=== PATIENT | female | born 1950 | race Caucasian/White ===

== ENCOUNTER 2023-02-22 11:33 | Inpatient (IN) | payer MEDICARE, BC, SELFPAY ==
[2023-02-22] VITALS (29 sets, daily range): BP systolic 17–204; BP diastolic 10–134; PULSE 80–83; RESP 2–26; TEMP 35.7–36.6; O2SAT 93–99; BMI 29.8
--- NOTE | 2023-02-22 12:16 | CRLHL7_ITS ---
For Patients: As a result of the Century Cures Act, medical imaging exams and procedure reports are released immediately into your electronic medical record. You may view this report before your referring provider. If you have questions, please contact your health care provider. INDICATION: Shortness of breath. Weakness. TECHNIQUE: Portable chest. FINDINGS: Sternotomy. Multi chamber moderate cardiomegaly. Right-sided pacemaker/ICD. No pneumothorax. Obscuration of left hemidiaphragm and part of the left heart border likely due to a left lower lobe and lingular infiltrate and/or atelectasis. Comparison/follow-up suggested. Degenerative change left AC joint. Presumed resection of the distal right clavicle. IMPRESSION: Cardiac enlargement without overt failure. Dense infiltrate and/or atelectasis left lower lobe and lingular left upper lobe. Dictated by Bobo Hong MD @ 02/22/2023 1:00:06 PM (Electronically Signed)
--- NOTE | 2023-02-22 12:18 | ED_ITS ---
HPI - General Adult General Chief complaint: Weakness Stated complaint: Weakness, swelling Time Seen by Provider: 02/22/23 11:35 History of Present Illness HPI narrative: This 72-year-old female is a recipient of a heart transplant almost 5 years ago. She comes in reporting weight gain with increased weakness and fear that she will fall when she is able to get up. She lives at home and states that she has a hard time getting up to ambulate from sitting position. She does not report any chest pain. She is taking torsemide but states that she is gaining weight recently with increased edema. She does not report any orthopnea. Related Data Allergies Allergy/AdvReac Type Severity Reaction Status Date / Time pioglitazone [From Actos] Allergy Verified 02/22/23 11:47 Review of Systems Status of ROS: Reports: 10 or more systems reviewed and unremarkable except as noted in History and below Narrative: Constitutional: No fevers, no weight gain or loss. Eyes: No discharge. No vision changes. HENT: No congestion, no sore throat, no ear pain. Cardiovascular: No chest pain, no palpitations. Respiratory: Shortness of breath with exertion. Gastrointestinal: No abdominal pain, no vomiting, no diarrhea. Genitourinary: No dysuria, no hematuria. Musculoskeletal: Normal range of motion. Increased pedal edema. Skin: No rashes, no pruritis. Neurological: No dizziness, weakness, sensory change, speech change. Endo/Heme/Allergies: No bruising or bleeding. No polydipsia. Pysch: no suicidality, no anxiety, no insomnia. All other systems reviewed and are negative. PFSH PFS Social History Smoking Status: Never smoker Do you use any of these nicotine containing products: None Second hand tobacco smoke exposure: Yes How often do you have a drink containing alcohol: never AUDIT-C Alcohol total score: 0 Non-prescribed substance use: denies use service: No Exam Narrative: Exam Narrative: Constitutional: Well-developed, well-nourished, no acute distress. HEENT: Normocephalic, atraumatic. Neck: Normal range of motion. Nontender. Supple. Heart: Regular. No murmurs. Normal rate. Intact distal pulses. Lungs: Clear to auscultation. No chest discomfort. No wheezes, rhonchi, or rales. Abdomen: Normal bowel sounds. Nontender. No rebound tenderness. Genitalia: Deferred. Back: No midline tenderness. Normal range of motion. Extremities: Normal range of motion. No injury. Large bilateral pedal edema. Skin: Intact. No rash. Warm. No erythema or pallor. Neurologic: No altered sensation. No weakness. Alert and oriented. Psychiatric: No suicidality. No anxiety or depression. No insomnia. Nursing notes and vitals signs are reviewed. Const: Vital Signs, click to edit/add: Vital Signs - 24 hr 02/22/23 11:47 02/22/23 11:58 02/22/23 12:00 Temperature 96.9 F L Pulse Rate 80 80 Pulse Rate [Pulse Oximeter] 80 Respiratory Rate 26 H Blood Pressure Blood Pressure [Le ft Forearm] 204/111 H Pulse Oximetry 95 94 94 Oxygen Delivery Me thod Room Air 02/22/23 12:02 02/22/23 12:03 02/22/23 12:15 Temperature Pulse Rate 80 80 80 Pulse Rate [Pulse Oximeter] Respiratory Rate Blood Pressure 199/113 H Blood Pressure [Le ft Forearm] Pulse Oximetry 94 93 94 Oxygen Delivery Me thod 02/22/23 12:30 02/22/23 12:33 02/22/23 12:45 Temperature Pulse Rate 80 80 80 Pulse Rate [Pulse Oximeter] Respiratory Rate Blood Pressure 175/84 H Blood Pressure [Le ft Forearm] Pulse Oximetry 96 96 96 Oxygen Delivery Me thod 02/22/23 12:49 Temperature Pulse Rate Pulse Rate [Pulse Oximeter] Respiratory Rate Blood Pressure Blood Pressure [Le ft Forearm] Pulse Oximetry 97 Oxygen Delivery Me thod Course Vital Signs Vital signs: Initial Vital Signs Temperature 96.9 F L 02/22/23 11:47 Temperature Source Temporal Artery Scan 02/22/23 11:47 Pulse Rate 80 02/22/23 11:47 Pulse Rhythm Regular 02/22/23 11:47 Respiratory Rate 26 H 02/22/23 11:47 Blood Pressure 204/111 H 02/22/23 11:47 Blood Pressure Mean 142 H 02/22/23 11:47 Blood Pressure Position Supine 02/22/23 11:47 Pulse Oximetry 95 02/22/23 11:47 Oxygen Delivery Method Room Air 02/22/23 11:47 Vital Signs Temperature 96.9 F L 02/22/23 11:47 Pulse Rate 80 02/22/23 11:47 Respiratory Rate 26 H 02/22/23 11:47 Blood Pressure 204/111 H 02/22/23 11:47 Pulse Oximetry 95 02/22/23 11:47 Oxygen Delivery Method Room Air 02/22/23 11:47 Temperature 96.9 F L 02/22/23 11:47 Pulse Rate 80 02/22/23 12:45 Respiratory Rate 26 H 02/22/23 11:47 Blood Pressure 175/84 H 02/22/23 12:33 Pulse Oximetry 97 02/22/23 12:49 Oxygen Delivery Method Room Air 02/22/23 11:47 Medical Decision Making MDM Narrative Medical decision making narrative: This 72-year-old female comes in reporting increased weakness over the past week or 2. She states that she has been retaining fluid in gaining weight. She does have a history of heart transplant about 5 years ago and is currently taking torsemide. She states that she is urinating but does have large bilateral pedal edema. An IV was established and the patient did receive an IV dose of Lasix 40 mg. EKG shows normal sinus rhythm without any ST or T-wave changes. Chest x- ray shows an enlarged heart with some decreased lung volume on the left side compared to normal. Lab results are reassuring. Her B type natriuretic peptide is elevated at around 5600. There is no comparison value for this available here. I did speak with the hospitalist precision mechanical instrument maker, Dr. Montoya, who agrees to her admission for further diuresis. Lab Data Labs: Lab Results 02/22/23 Range/Units 12:35 WBC 3.78 L (4.50-11.00) K/uL RBC 4.18 (4.00-5.20) m/uL Hgb 11.7 L (12.0-16.0) gm/dL Hct 35.5 (33.0-51.0) % MCV 85 (80-100) fL MCH 28 (26-34) pg MCHC 33 (32-36) gm/dL RDW Coeff of Wanda 15.1 (11.5-15.5) % Plt Count 158 (140-440) K/uL Neut % (Auto) 68.0 (42.0-72.0) % Lymph % (Auto) 19.6 L (20-44) % [place] % (Auto) 7.9 (0.0-11.0) % Eos % (Auto) 3.7 (0.0-7.0) % Baso % (Auto) 0.5 (0.0-3.0) % Neut # (Auto) 2.60 (1.7-7.0) K/uL Lymph # (Auto) 0.70 L (0.90-2.90) K/uL [place] # (Auto) 0.30 (0.00-0.90) K/UL Eos # (Auto) 0.10 (0.00-0.50) K/uL Baso # (Auto) 0.00 (0.00-0.30) K/uL Sodium 138 (135-149) mmol/L Potassium 3.6 (3.6-5.1) mmol/L Chloride 109 (96-114) mmol/L Carbon Dioxide 27 (20-32) mmol/L BUN 29 (7-30) mg/dL Creatinine 2.3 H (0.5-1.5) mg/dL Estimated Creat Clear 21.82 Estimated GFR 22 ml/min Glucose 127 H (60-115) mg/dL Calcium 7.9 L (8.4-10.6) mg/dL NT-Pro-B Natriuret Pep 5620 pg/mL POC Troponin I 0.02 (0.01-0.04) ng/ml Imaging Data Chest x-ray: Radiologist's impression: FINDINGS: Sternotomy. Multi chamber moderate cardiomegaly. Right-sided pacemaker/ICD. No pneumothorax. Obscuration of left hemidiaphragm and part of the left heart border likely due to a left lower lobe and lingular infiltrate and/or atelectasis. Comparison/follow-up suggested. Degenerative change left AC joint. Presumed resection of the distal right clavicle. IMPRESSION: Cardiac enlargement without overt failure. Dense infiltrate and/or atelectasis left lower lobe and lingular left upper lobe. Discharge Plan Discharge Clinical Impression: Congestive heart failure Patient Disposition: Admitted As Inpatient Condition: Unchanged Follow Up/Referrals: Huseyin Vera MD [Primary Care Provider] -
--- OUTSIDE RECORDS SUMMARY | 2023-02-22 12:38 | XMS_ITS | Continuity of Care Document ---
Author Name Unknown Organization [facility] Address [address] [address] [place] [address] Phone Care Team Providers Care Supervisor Advice Name Role Phone Terra Mustafa Unavailable Unavailable Procedures Procedure Date Subsqt Hosp-da E&m Minr Compl 2 Init Hosp-da E&m Mod Severity 2 Init Hosp-da E&m Low Severity 7 Colorectal Ca Scrn Not Hi Risk 17 Moderate sedation, initial 15 minutes Advance Directives Directive Yes / No Effective Date File Name No Information Encounters Encounter Description Practice Location Reason(s) For Visit Diagnoses Date Provider Providers Copied on Encounter Subsqt Hosp-da E&m Minr Compl [facility], [address] [address], [place], [place], [id number], [place] tel:[phone] [facility] No Information [address] [facility] [address], [place], [id number], [place]. tel:[phone] Referring Provider: Gaudencio Cooper MD, [address], [address]. tel:[phone] Init Hosp-da E&m Mod Severity [facility], [address] [address], [place], [place], [id number], [place] tel:[phone] [facility] No Information [address] [facility] [address], [place], [id number], [place]. tel:[phone] Referring Provider: Gaudencio Cooper MD, [address], [place], [address]. tel:[phone] Init Hosp-da E&m Low Severity [facility], [address] [address], [place], [place], [id number], [place] tel:[phone] [facility] No Information Mar- 7 Kal REYES Osman. [address] [facility] [facility] [address], [place], [place], [id number], [place]. tel:[phone] Ref[place], [address] [place], [address]. tel:[phone] Family History Family Member Type Diagnosis Age At Onset No Information Payers Payer name Insurance type Covered libertarian ID shiraz vang(s) Medicare NGS MB [id number] [facility] Medicare Supplement BL [id number] Social History Type Description Quantity Date Captured Comments Sex Female Smoking Status No Information Chief Complaint And Reason For Visit No Information Reason For Referral Reason For Referral No Information Plan Of Treatment Date Type Action Status No Information History Of Present Illness Encounter Date Complaint History Of Prese nt Illness No Information Functional Status Date Functional Assessmen t No Information Instructions Date Instruction Additional Infor mation No Information Assessments Type Assessment Date No Information Patient Care Teams Name Effective Dates (start - stop) Status Members No Information
[2023-02-22] MEDS: FUROSEMIDE 10 MG/ML inj 40 MG IVP (12:39)
[2023-02-22 12:48] LABS: Basophils Percent Auto 0.5 % (0.0-3.0); Eosinophils Percent Auto 3.7 % (0.0-7.0); Hematocrit 35.5 % (33.0-51.0); Hemoglobin* 11.7 gm/dL (12.0-16.0); Immature Granulocytes Pct Auto 0.3 %; Lymphocytes Percent Auto 19.6 % (20-44); Mean Corpuscular HGB Conc 33 gm/dL (32-36); Mean Corpuscular Hemoglobin 28 pg (26-34); Mean Corpuscular Volume 85 fL (80-100); Monocytes Percent Auto 7.9 % (0.0-11.0); Platelet Count* 158 K/uL (140-440); RDW Coefficient of Variation % 15.1 % (11.5-15.5); Red Blood Count 4.18 m/uL (4.00-5.20); White Blood Count* 3.78 K/uL (4.50-11.00)
[2023-02-22 12:51] LABS: Slide Review Reflex No
[2023-02-22 12:52] LABS: Troponin, Point-of-Care* 0.02 ng/ml (0.01-0.04)
[2023-02-22 13:05] LABS: Chloride* 109 mmol/L (96-114); Potassium* 3.6 mmol/L (3.6-5.1); Sodium* 138 mmol/L (135-149)
[2023-02-22 13:08] LABS: Blood Urea Nitrogen* 29 mg/dL (7-30); Carbon Dioxide* 27 mmol/L (20-32); Creatinine* 2.3 mg/dL (0.5-1.5); Est. Creatinine Clearance* 21.82; Estimated Glomerular Filt Rate 22 ml/min; Glucose* 127 mg/dL (60-115)
[2023-02-22 13:09] LABS: Calcium* 7.9 mg/dL (8.4-10.6)
[2023-02-22 13:18] LABS: NT Pro B Type NatriureticPept* 5620 pg/mL
[2023-02-22] MEDS: POTASSIUM BICARB 25 MEQ EFFERVESCENT TAB PO (14:12)
--- NOTE | 2023-02-22 15:25 | PM.IMHP1 ---
Hospitalist- H&P: HPI History of Present Illness Date Seen: 02/22/23 Chief complaint: Weakness, swelling Narrative: Jael Khan is a 72 year old female status post heart transplant for nonischemic cardiomyopathy, pacemaker placement for complete heart block, tricuspid valve replacement, hypertension, diabetes mellitus presents with a 2 week history of progressive weakness, fatigue, dyspnea, cough and lower extremity edema. She has also noted weight gain. She has not noted any orthopnea. She estimates she has had about 10 lb weight gain in the last couple weeks going from her normal of 181 lb to 191 lb. She reports that she avoid sodium in her diet and has been compliant with her medications. She has not had any chest pain, cough, fever or syncope. Her blood pressure is quite high here. She is unaware whether she has had good blood pressure control at home. She is also unaware of her blood sugar control. Her record indicates she has type 1 diabetes but she is only on a low dose of long-acting insulin, Levemir for treatment. I suspect that she has type 2 diabetes requiring insulin. Review of Systems Narrative: She reports other than the symptoms above she has generally been doing well recently. She does note that she has had no abdominal symptoms or gastrointestinal symptoms except for a little bit of a loss of appetite in the last couple days. No diarrhea. Bowels are normal in appearance without blood or melena. She has been urinating. She lives with her near [facility]. She requests all of her immediate family be healthcare power of commonwealth attorney. Code status is full code for witnessed arrest only. She does not smoke. She does not drink alcohol. [facility] Medical History Obesity ?E66.9 - Obesity, unspecified (ICD-10) Diabetic retinopathy ?E11.319 - Type 2 diabetes mellitus with unspecified diabetic retinopathy without macular edema (ICD-10) Hypertension ?I10 - Essential (primary) hypertension (ICD-10) Diabetes mellitus ?E11.9 - Type 2 diabetes mellitus without complications (ICD-10) Cognitive impairment ?R41.89 - Other symptoms and signs involving cognitive functions and awareness (ICD-10) Acute on chronic kidney failure ?N17.9 - Acute kidney failure, unspecified (ICD-10) ?N18.9 - Chronic kidney disease, unspecified (ICD-10) Acute exacerbation of CHF (congestive heart failure) ?I50.9 - Heart failure, unspecified (ICD-10) Surgical History (Updated 02/22/23 @ 16:01 by Matthieu Montoya MD) History of carpal tunnel release ?Z98.890 - Other specified postprocedural states (ICD-10) History of abdominal hysterectomy ?Z90.710 - Acquired absence of both cervix and uterus (ICD-10) History of cataract surgery ?Z98.49 - Cataract extraction status, unspecified eye (ICD-10) Status post placement of cardiac pacemaker ?Z95.0 - Presence of cardiac pacemaker (ICD-10) History of tricuspid valve replacement ?Z95.2 - Presence of prosthetic heart valve (ICD-10) Status post orthotopic heart transplant ?Z94.1 - Heart transplant status (ICD-10) Family History (Updated 02/22/23 @ 16:05 by Matthieu Montoya MD) Sister Cardiovascular disease Mother Diabetes Cardiovascular disease Social History Smoking Status: Never smoker Do you use any of these nicotine containing products: None Second hand tobacco smoke exposure: Yes How often do you have a drink containing alcohol: never AUDIT-C Alcohol total score: 0 Non-prescribed substance use: denies use service: No Meds Home Medications and Allergies Allergies Allergy/AdvReac Type Severity Reaction Status Date / Time pioglitazone [From Actos] Allergy Verified 02/22/23 11:47 Exam Narrative: Exam Narrative: She is alert and appears in no obvious distress. She gives her own history. She has some difficulty recalling specific medical interventions and timing over the past year. She is unable to tell me her medications timing and dosing even when I give her the names. She does not recall the timing of her last dose on many medications as well. Head is without trauma. Eyes normal. Extraocular movements are full. Oropharynx with small airway. Neck is supple without mass or adenopathy. I do not appreciate significant jugular venous distension. Respirations with a few basilar crackles. Otherwise clear to auscultation. No wheezing. Cardiovascular: S1, S2, regular rate and rhythm. 1/6 systolic murmur. No gallop or rub. Abdomen: Bowel sounds active. Abdomen is soft without tenderness or mass. External genitalia normal. Extremities with 3+ edema in both lower extremities. Extremities are mildly cool to touch. She moves all 4 extremities well. No rash. Const: Vital Signs, click to edit/add: Vital Signs - 24 hr 02/22/23 11:47 02/22/23 11:58 02/22/23 12:00 Temperature 96.9 F L Pulse Rate 80 80 Pulse Rate [Pulse Oximeter] 80 Respiratory Rate 26 H Blood Pressure Blood Pressure [Le ft Forearm] 204/111 H Pulse Oximetry 95 94 94 [facility] 02/22/23 12:02 02/22/23 12:03 02/22/23 12:15 Temperature Pulse Rate 80 80 80 Pulse Rate [Pulse Oximeter] Respiratory Rate Blood Pressure 199/113 H Blood Pressure [Le ft Forearm] Pulse Oximetry 94 93 94 [facility] 02/22/23 12:30 02/22/23 12:33 02/22/23 12:45 Temperature Pulse Rate 80 80 80 Pulse Rate [Pulse Oximeter] Respiratory Rate Blood Pressure 175/84 H Blood Pressure [Le ft Forearm] Pulse Oximetry 96 96 96 [facility] 02/22/23 12:49 02/22/23 13:00 02/22/23 13:02 Temperature Pulse Rate 80 80 Pulse Rate [Pulse Oximeter] Respiratory Rate Blood Pressure 189/134 H Blood Pressure [Le ft Forearm] Pulse Oximetry 97 95 93 [facility] 02/22/23 13:15 02/22/23 13:30 02/22/23 13:32 Temperature Pulse Rate 80 80 82 Pulse Rate [Pulse Oximeter] Respiratory Rate Blood Pressure 187/133 H Blood Pressure [Le ft Forearm] Pulse Oximetry 96 96 97 [facility] 02/22/23 13:42 02/22/23 13:45 02/22/23 14:00 Temperature Pulse Rate 80 80 80 Pulse Rate [Pulse Oximeter] Respiratory Rate Blood Pressure 194/117 H Blood Pressure [Le ft Forearm] Pulse Oximetry 98 97 96 [facility] 02/22/23 14:02 02/22/23 14:15 02/22/23 14:30 Temperature Pulse Rate 82 80 80 Pulse Rate [Pulse Oximeter] Respiratory Rate Blood Pressure 188/122 H Blood Pressure [Le ft Forearm] Pulse Oximetry 97 98 97 [facility] 02/22/23 14:32 02/22/23 14:45 Temperature Pulse Rate 81 80 Pulse Rate [Pulse Oximeter] Respiratory Rate Blood Pressure 200/120 H Blood Pressure [Le ft Forearm] Pulse Oximetry 99 98 Oxygen Delivery Me thod Documenting provider has reviewed patient's vital signs: yes Hospitalist - H&P: Result Labs Labs: Short CBC 02/22/23 Range/Units 12:35 WBC 3.78 L (4.50-11.00) K/uL Hgb 11.7 L (12.0-16.0) gm/dL Hct 35.5 (33.0-51.0) % Plt Count 158 (140-440) K/uL BMP 02/22/23 12:35 Sodium 138 Potassium 3.6 Chloride 109 Carbon Dioxide 27 BUN 29 Creatinine 2.3 H Glucose 127 H Calcium 7.9 L Imaging Chest x-ray: Radiologist's impression: INDICATION: Shortness of breath. Weakness. TECHNIQUE: Portable chest. FINDINGS: Sternotomy. Multi chamber moderate cardiomegaly. Right-sided pacemaker/ICD. No pneumothorax. Obscuration of left hemidiaphragm and part of the left heart border likely due to a left lower lobe and lingular infiltrate and/or atelectasis. Comparison/follow-up suggested. Degenerative change left AC joint. Presumed resection of the distal right clavicle. IMPRESSION: Cardiac enlargement without overt failure. Dense infiltrate and/or atelectasis left lower lobe and lingular left upper lobe. Assessment and Plan Assessment and plan (1) Status post orthotopic heart transplant: Problem comment: At [facility] 04/02/2018. Status: Acute (2) Acute exacerbation of CHF (congestive heart failure): Problem comment: Probably due to HTN. Check Echo, IV furosemide, BP control. Patient reports compliance with diet and medications. Status: Acute (3) Acute on chronic kidney failure: Problem comment: baseline creatinine is 1.2-1.8 in past 4 months. Now 2.3 Status: Acute (4) Cognitive impairment: Problem comment: Patient does not know her meds, dosages, frequencies or last time taken. will assess if she needs supervision with meds. Status: Acute (5) Diabetes mellitus: Status: Acute (6) Hypertension: Problem comment: severe. If not responding to diuretic may need IV Nitro/nitropruside. Status: Acute Plan I spoke with [facility] beer maker, Guero Guardado MD [phone], about a plan of care. He would like us to obtain an echocardiogram. She may need to be transferred if the echocardiogram does not show normal ejection fraction as it did last July. He would also like a trough tacrolimus serum level to be sent out. He would welcome a phone call with concerns or questions. Will initiate IV furosemide for diuresis, resume home blood pressure medicines to address hypertension. Will increase her carvedilol. This was stopped after her surgery in October but then resumed at a lower dose. She has a pacemaker so will likely tolerate an increased dose. Will need to follow renal function and electrolytes closely with her acute kidney injury. Does not total time spent today is 90 minutes, 55 minutes in coordination care discussing with patient and other providers ongoing management of heart failure and transplant patient
[2023-02-22 16:04] LABS: Albumin* 2.5 g/dL (3.3-5.0)
[2023-02-22 16:07] LABS: Alkaline Phosphatase* 95 U/L (40-150); Aspartate Amino Transferase* 42 U/L (12-35); Bilirubin Total* 0.5 mg/dL (0.1-1.5); Total Protein* 4.9 g/dL (6.0-8.3)
[2023-02-22 16:08] LABS: Alanine Aminotransferase* 29 U/L (4-35)
[2023-02-22] MEDS: carvediloL 6.25 MG TABLET PO ×2 (18:11→21:30)
[2023-02-22] MEDS: AMLODIPINE 5 MG TABLET PO ×2 (18:11→21:29)
[2023-02-22] MEDS: ATORVASTATIN 10 MG TABLET PO (18:13)
[2023-02-22] MEDS: FUROSEMIDE 10 MG/ML inj 80 MG IVP (18:14)
[2023-02-22] MEDS: POTASSIUM CHLORIDE 10 MEQ CAPSULE ER 20 MEQ PO (18:14)
--- NOTE | 2023-02-22 18:41 | PC.NURSE ---
Patient came up to unit at 1455, admit from ED. She is alert and oriented x 4, on RA, regular diet, SBA w/ FWW and GB. +2 pitting edema in BLLE, hands also edematous. PRICILLA socks applied per order and tele monitor. Glucose level at 1800 was 92, no sliding correction needed and d/t low glucose level MD contacted regarding additional 4U showing on DEC, MD gave verbal order to hold standing 4U. Patient ate very little supper. Pt has hx of heart transplant 5 years ago. Vital signs stable with exception of BP, 180/110 after arrival on unit. 80 mg IVP Furosemide given at 1830.
[2023-02-22] MEDS: APIXABAN 5 MG TABLET PO (21:29)
[2023-02-22] MEDS: mycophenolate mofetiL 250 MG CAPSULE PO (21:29)
[2023-02-22] MEDS: SODIUM CHLORIDE 0.9 % (FLUSH) 10 ML SYRINGE 5 ML IVF (21:30)
[2023-02-22] MEDS: HYDRALAZINE 25 MG TABLET PO (23:07)
[2023-02-22] MEDS: ISOSORBIDE MONONITRATE ER 30 MG TAB PO (23:07)
[2023-02-23] VITALS (8 sets, daily range): BP systolic 139–160; BP diastolic 90–115; PULSE 80–81; RESP 12–16; TEMP 36.1–36.5; O2SAT 93–99
--- NOTE | 2023-02-23 02:47 | PC.NURSE ---
Pt up with assist of walker and gait belt. Max assist to standing position. Once standing is minimal assist to walk into the BR. Inc of stool x1 while walking to the BR. Needs some strengthing. VSS except BP which is elevated. Spoke with and he ordered a one time dose of Isosorbide and of Hydralazine. These were given and pressures have come down slightly. Will cont to monitor. Inc of stool while walking to theBr. Tolerating diet.
--- NOTE | 2023-02-23 04:25 | PC.NURSE ---
When travel writer took vitals at 2346 pt BP was 194/113, 80 bpm, respirations 16, O2 stats 97%, and temp was 97.8, pt had received Hydralazine PO 25 mg, pt Isosorbide Mononitrate PO 30 mg for high bp around 2307 by previous nurse. [employer] Executive Director took pt's bp again at 0046 pt bp was 151/102. Around 31102/23/23 travel writer took pt vitals again pt bp was 158/116, pulse 81, O2 stats 93%, temp 97.7, respirations 16. Manual bp was then taken around 319 at 155/104, pt denied headache, SOB, chest pain N/V. Josesito was called and updated at 327 about continuously high blood pressure, Josesito called back around 344, no further orders given at this time.
--- NOTE | 2023-02-23 06:47 | PC.NURSE ---
Pt alert and oriented x3. Afebrile. Pt denies pain, chest pain, SOB, and N/V. Pt blood pressures were elevated during night, Josesito was called, no further orders at this time, detailed note in chart. Pt is up SBA with walker and gait belt, tolerating a regular diet. Pt slept throughout most of?night.?
[2023-02-23 07:01] LABS: Basophils Percent Auto 0.3 % (0.0-3.0); Eosinophils Percent Auto 4.4 % (0.0-7.0); Hematocrit 36.8 % (33.0-51.0); Immature Granulocytes Pct Auto 0.3 %; Lymphocytes Percent Auto 26.6 % (20-44); Mean Corpuscular HGB Conc 33 gm/dL (32-36); Mean Corpuscular Hemoglobin 28 pg (26-34); Mean Corpuscular Volume 84 fL (80-100); Monocytes Percent Auto 8.1 % (0.0-11.0); Neutrophils Percent Auto 60.3 % (42.0-72.0); Platelet Count* 192 K/uL (140-440); RDW Coefficient of Variation % 15.2 % (11.5-15.5); Red Blood Count 4.37 m/uL (4.00-5.20); White Blood Count* 3.83 K/uL (4.50-11.00)
[2023-02-23 07:03] LABS: Slide Review Reflex No
[2023-02-23 07:12] LABS: Chloride* 109 mmol/L (96-114); Potassium* 4.3 mmol/L (3.6-5.1); Sodium* 137 mmol/L (135-149)
[2023-02-23 07:15] LABS: Creatinine* 2.2 mg/dL (0.5-1.5); Est. Creatinine Clearance* 22.81; Estimated Glomerular Filt Rate 23 ml/min
[2023-02-23 07:16] LABS: Blood Urea Nitrogen* 30 mg/dL (7-30); Calcium* 8.1 mg/dL (8.4-10.6); Carbon Dioxide* 27 mmol/L (20-32); Glucose* 102 mg/dL (60-115)
[2023-02-23 07:19] LABS: C Reactive Protein* 0.5 mg/dL (0.5-1.0)
[2023-02-23 07:27] LABS: Hemoglobin A1C* 8.58 % (0-5.6)
[2023-02-23] MEDS: FUROSEMIDE 10 MG/ML inj 80 MG IVP (07:46)
[2023-02-23] MEDS: POTASSIUM CHLORIDE 10 MEQ CAPSULE ER 20 MEQ PO ×3 (08:44→17:37)
[2023-02-23] MEDS: carvediloL 6.25 MG TABLET 12.5 MG PO ×2 (08:45→20:54)
[2023-02-23] MEDS: ASPIRIN 81 MG TAB.CHEW PO (08:45)
[2023-02-23] MEDS: SERTRALINE 100 MG TABLET PO (08:45)
[2023-02-23] MEDS: APIXABAN 5 MG TABLET PO ×2 (08:45→20:55)
[2023-02-23] MEDS: AMLODIPINE 5 MG TABLET PO ×2 (08:45→20:54)
[2023-02-23] MEDS: SODIUM CHLORIDE 0.9 % (FLUSH) 10 ML SYRINGE 5 ML IVF ×2 (08:46→21:02)
[2023-02-23] MEDS: mycophenolate mofetiL 250 MG CAPSULE PO ×2 (08:57→20:55)
--- NOTE | 2023-02-23 10:45 | PM.IMPN1 ---
Progress Note: A&P Assessment and plan (1) Status post orthotopic heart transplant: Problem details: - ANW 04/02/2018. - TTE obtained 02/22/23 exhibits reassuring LV function - Reviewed findings with her transplant team; no transfer needed at this time, routine outpatient follow-up Status: Acute (2) Acute exacerbation of CHF (congestive heart failure): Problem details: - presumably 2/2 HTN - continue diuresis, follow Is/Os Status: Acute (3) Acute on chronic kidney failure: Problem details: - baseline creatinine is 1.2-1.8 in past 4 months. Now 2.3 Status: Acute (4) Cognitive impairment: Problem details: - needs medication assistance Status: Acute (5) Diabetes mellitus: Problem details: - type 1 per chart review - noted to have hypoglycemia and minimal p.o. intake with poor insulin compliance at home - 02/23: We will hold mealtime insulin, continue long-acting insulin assess what her needs are with sliding scale to help determine the best outpatient regimen for Wanda Status: Acute (6) Hypertension: Problem details: - improved on hospital day 2, we will be cautious to prevent hypotension given her neurologic event on hospital day 1 Status: Acute (7) CVA (cerebral vascular accident): Problem details: - patient noted to have acute onset of facial droop and dysarthria on 02/23 am - CT head and CTA of head and neck revealed no acute abnormalities, symptoms spontaneously resolved approximately 1 hour after onset - reviewed findings with Stroke Neurology; no changes to regimen at this time as patient is anticoagulated on Eliquis - we will follow patient with frequent neuro checks, continue statin, ASA, Eliquis Status: Acute Plan - per above - continue diuresis, close monitoring of renal function - appreciate input from therapies as patient may need a higher level of care upon discharge - and son updated at bedside, questions answered Subjective Date Seen: 02/23/23 Interval history: I saw Wanda this morning and she was feeling improved, but still weak and not ready yet for discharge. Her blood pressure did decrease overnight. She is having no chest pain or shortness of breath this morning. At approximately 11am, patient's came out of her room stating that his was unable to speak. Upon arrival, patient was notably dysarthric and had a left mouth droop. The med surg team initiated a stroke code; patient's blood sugar was noted to be within normal limits, oxygen was applied and she was taken immediately to CT. was updated at bedside. 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, no pronator drift, gait not acutely examined Patient re-examined after returning from CT: She has normal fluent speech and left mouth droop has significantly improved Const: Vital Signs, click to edit/add: Vital Signs - 24 hr 02/22/23 11:47 02/22/23 11:58 02/22/23 12:00 Temperature 96.9 F L Pulse Rate 80 80 Pulse Rate [Pulse Oximeter] 80 Respiratory Rate 26 H Blood Pressure Blood Pressure [Le ft Arm] Blood Pressure [Le ft Forearm] 204/111 H Pulse Oximetry 95 94 94 [facility] 02/22/23 12:02 02/22/23 12:03 02/22/23 12:15 Temperature Pulse Rate 80 80 80 Pulse Rate [Pulse Oximeter] Respiratory Rate Blood Pressure 199/113 H Blood Pressure [Le ft Arm] Blood Pressure [Le ft Forearm] Pulse Oximetry 94 93 94 Oxygen Delivery Sd thod 02/22/23 12:30 02/22/23 12:33 02/22/23 12:45 Temperature Pulse Rate 80 80 80 Pulse Rate [Pulse Oximeter] Respiratory Rate Blood Pressure 175/84 H Blood Pressure [Le ft Arm] Blood Pressure [Le ft Forearm] Pulse Oximetry 96 96 96 Oxygen Delivery Sd thod 02/22/23 12:49 02/22/23 13:00 02/22/23 13:02 Temperature Pulse Rate 80 80 Pulse Rate [Pulse Oximeter] Respiratory Rate Blood Pressure 189/134 H Blood Pressure [Le ft Arm] Blood Pressure [Le ft Forearm] Pulse Oximetry 97 95 93 Oxygen Delivery Me thod 02/22/23 13:15 02/22/23 13:30 02/22/23 13:32 Temperature Pulse Rate 80 80 82 Pulse Rate [Pulse Oximeter] Respiratory Rate Blood Pressure 187/133 H Blood Pressure [Le ft Arm] Blood Pressure [Le ft Forearm] Pulse Oximetry 96 96 97 Oxygen Delivery [facility] 02/22/23 13:42 02/22/23 13:45 02/22/23 14:00 Temperature Pulse Rate 80 80 80 Pulse Rate [Pulse Oximeter] Respiratory Rate Blood Pressure 194/117 H Blood Pressure [Le ft Arm] Blood Pressure [Le ft Forearm] Pulse Oximetry 98 97 96 Oxygen Delivery [facility] 02/22/23 14:02 02/22/23 14:15 02/22/23 14:30 Temperature Pulse Rate 82 80 80 Pulse Rate [Pulse Oximeter] Respiratory Rate Blood Pressure 188/122 H Blood Pressure [Le ft Arm] Blood Pressure [Le ft Forearm] Pulse Oximetry 97 98 97 Oxygen Delivery [facility] 02/22/23 14:32 02/22/23 14:45 02/22/23 15:31 Temperature 96.7 F L Pulse Rate 81 80 Pulse Rate [Pulse Oximeter] 81 Respiratory Rate 15 Blood Pressure 200/120 H Blood Pressure [Le ft Arm] 186/110 H Blood Pressure [Le ft Forearm] Pulse Oximetry 99 98 97 Oxygen Delivery [facility] Room Air 02/22/23 15:31 02/22/23 16:54 02/22/23 16:54 Temperature 96.2 F L Pulse Rate 81 Pulse Rate [Pulse Oximeter] 81 Respiratory Rate 15 Blood Pressure Blood Pressure [Le ft Arm] 186/110 H Blood Pressure [Le ft Forearm] Pulse Oximetry 97 Oxygen Delivery [facility] Room Air Room Air 02/22/23 20:20 02/22/23 20:39 02/22/23 22:33 Temperature 97.2 F L Pulse Rate 80 Pulse Rate [Pulse Oximeter] 80 83 Respiratory Rate 20 2 L Blood Pressure Blood Pressure [Le ft Arm] 197/105 H 17/10 L Blood Pressure [Le ft Forearm] Pulse Oximetry 95 Oxygen Delivery [facility] Room Air 02/22/23 23:45 02/22/23 23:45 02/22/23 23:45 Temperature 97.8 F Pulse Rate 80 Pulse Rate [Pulse Oximeter] 80 80 Respiratory Rate 16 16 Blood Pressure Blood Pressure [Le ft Arm] 194/113 H Blood Pressure [Le ft Forearm] Pulse Oximetry 97 Oxygen Delivery [facility] Room Air 02/23/23 00:45 02/23/23 03:12 02/23/23 06:27 Temperature 97.7 F Pulse Rate Pulse Rate [Pulse Oximeter] 80 81 Respiratory Rate 16 16 16 Blood Pressure Blood Pressure [Le ft Arm] 151/102 H 155/104 H 152/96 H Blood Pressure [Le ft Forearm] Pulse Oximetry 95 93 Oxygen Delivery Me thod Room Air Room Air 02/23/23 07:00 02/23/23 07:00 02/23/23 07:00 Temperature 97.4 F L Pulse Rate 80 Pulse Rate [Pulse Oximeter] 80 80 Respiratory Rate 14 16 Blood Pressure Blood Pressure [Le ft Arm] 159/103 H Blood Pressure [Le ft Forearm] Pulse Oximetry 96 Oxygen Delivery Me thod Room Air Labs Labs: Laboratory Results - last 24 hr 02/22/23 02/23/23 12:35 06:50 WBC 3.78 L 3.83 L RBC 4.18 4.37 Hgb 11.7 L 12.0 Hct 35.5 36.8 MCV 85 84 MCH 28 28 MCHC 33 33 RDW Coeff of Wanda 15.1 15.2 Plt Count 158 192 Neut % (Auto) 68.0 60.3 Lymph % (Auto) 19.6 L 26.6 [place] % (Auto) 7.9 8.1 Eos % (Auto) 3.7 4.4 Baso % (Auto) 0.5 0.3 Neut # (Auto) 2.60 2.30 Lymph # (Auto) 0.70 L 1.00 [place] # (Auto) 0.30 0.30 Eos # (Auto) 0.10 0.20 Baso # (Auto) 0.00 0.00 Sodium 138 137 Potassium 3.6 4.3 Chloride 109 109 Carbon Dioxide 27 27 BUN 29 30 Creatinine 2.3 H 2.2 H Estimated Creat Clear 21.82 22.81 Estimated GFR 22 23 Glucose 127 H 102 Hemoglobin A1c 8.58 H Calcium 7.9 L 8.1 L Total Bilirubin 0.5 Direct Bilirubin 0.0 AST 42 H ALT 29 Alkaline Phosphatase 95 C-Reactive Protein 0.5 NT-Pro-B Natriuret Pep 5620 Total Protein 4.9 L Albumin 2.5 L TSH 2.640 POC Troponin I 0.02
--- NOTE | 2023-02-23 11:02 | CRLHL7_ITS ---
For Patients: As a result of the Century Cures Act, medical imaging exams and procedure reports are released immediately into your electronic medical record. You may view this report before your referring provider. If you have questions, please contact your health care provider. INDICATION: Acute stroke, left facial droop. TECHNIQUE: CTA head with contrast bolus tracking, 3D angiographic rendering using maximum intensity projection (MIP) and images permanently archived. FINDINGS: There is intracranial atherosclerotic disease around the carotid siphons without significant stenosis. There is otherwise normal opacification of the intracranial vasculature. There is no large vessel occlusion. No aneurysm is identified. IMPRESSION: Unremarkable head CTA. No large vessel occlusion. Please note that all CT scans at this facility use dose modulation, iterative reconstruction, and/or weight-based dosing when appropriate to reduce radiation dose to as low as reasonably achievable. Dictated by Juanito Bray MD @ 02/23/2023 2:14:03 PM (Electronically Signed)
--- NOTE | 2023-02-23 11:02 | CRLHL7_ITS ---
For Patients: As a result of the Century Cures Act, medical imaging exams and procedure reports are released immediately into your electronic medical record. You may view this report before your referring provider. If you have questions, please contact your health care provider. INDICATION: Weakness COMPARISON: None TECHNIQUE: CT examination of the head was performed as axial sections without intravenous contrast. Images were obtained from the vertex of the skull through the skull base. Please note that all CT scans at this facility use dose modulation, iterative reconstruction, and/or weight-based dosing when appropriate to reduce radiation dose to as low as reasonably achievable. FINDINGS: Focal low-density area in the deep white matter near the munguia-white junction of the left frontal lobe. This is seen on series 4, image 43. This is probably an ischemic focus, age-indeterminate. No hemorrhage. No additional focal abnormal findings. No abnormal extra-axial fluid collection There are involutional changes. There is mild cortical atrophy and there is mild white matter disease. There is no hydrocephalus. The visualized portions of the orbits are normal in appearance. The osseous structures are normal in appearance with no sign of abnormality in the skull base or calvarium. I discussed this case with Dr. Lang at 11:30 a.m. on February 23, 2023 IMPRESSION: Focal low-density area in the deep white matter of the left frontal lobe near the munguia-white junction probably an ischemic focus, age-indeterminate. No hemorrhage. No abnormal extra-axial fluid collection. No additional focal findings. Please note that all CT scans at this facility use dose modulation, iterative reconstruction, and/or weight-based dosing when appropriate to reduce radiation dose to as low as reasonably achievable. Dictated by Robert Kaminski MD @ 02/23/2023 11:32:26 AM (Electronically Signed)
--- NOTE | 2023-02-23 11:02 | CRLHL7_ITS ---
For Patients: As a result of the Century Cures Act, medical imaging exams and procedure reports are released immediately into your electronic medical record. You may view this report before your referring provider. If you have questions, please contact your health care provider. INDICATION: Acute stroke, left facial droop. TECHNIQUE: CTA neck with contrast bolus tracking, 3D angiographic rendering using maximum intensity projection (MIP) and images permanently archived. FINDINGS: There is no significant carotid artery stenosis or dissection. There is no significant vertebral artery stenosis or dissection. There is multinodular goiter. The cervical spine is in normal alignment. A left pleural effusion is noted. IMPRESSION: 1. No significant carotid or vertebral artery stenosis or dissection. 2. Left pleural effusion. 3. Multinodular goiter. Please note that all CT scans at this facility use dose modulation, iterative reconstruction, and/or weight-based dosing when appropriate to reduce radiation dose to as low as reasonably achievable. Dictated by Juanito Bray MD @ 02/23/2023 2:17:30 PM (Electronically Signed)
--- NOTE | 2023-02-23 11:57 | PC.NURSE ---
At approx 1101 pts came into the hallway from the pts room and indicated that something isn't right with his . When staff (Dr. Felton, Jayson Wolff, Queenie Conteh and myself) entered the room at 1102 it was noted that the patient speech was garbled, she was confused, her facial color was ashen and her left side was slightly drooped. At 1103 vital signs were taken (BP was 144/102), at 1104 2L O2 via NC was administered to the patient, at 1105 glucose levels were taken (150), at 1106 radiology staff arrived to take the patient for a CT scan, at 1107 patient exited the room via stretcher with radiology staff. Patient returned to the room at approx 1130, vital signs were administered and Dr Felton spoke with patient about the CT results. Patient's and son arrived shortly after and went into the patients room.
--- NOTE | 2023-02-23 12:12 | REH.OT ---
OT eval cancelled today as Pt. was transferred to ED.
[2023-02-23] MEDS: ATORVASTATIN 10 MG TABLET PO (17:37)
[2023-02-23] MEDS: 0.9 % SODIUM CHLORIDE 500 ML 500 ML IV (17:37)
--- NOTE | 2023-02-23 18:40 | PC.NURSE ---
Patient is alert and oriented x 4, on RA, regular diet, SBA w/ FWW and GB, saline locked. She is mostly incontinent of urine, her brief was changed at shift change and it was noted that it was soaked d/t diuresing. BLLE seem less edematous, PRICILLA socks remain in place. Patient takes meds whole with no issue. No recurrence of same or similar incident that occurred earlier today with regard to possible stroke symptoms. Patient denies pain, is coherent and talking in complete sentences, normal strength in BL upper extremities, denies dizziness, nausea, has not been diaphoretic. Glucose levels remain WDL, no sliding scale corrections necessary today. Per MD order, 500ml bolus given, encourage fluid intake - her intake is poor orally.
[2023-02-24] VITALS (10 sets, daily range): BP systolic 140–177; BP diastolic 77–103; PULSE 78–81; RESP 16–20; TEMP 36.3–36.8; O2SAT 92–95
[2023-02-24 07:25] LABS: Basophils Percent Auto 0.5 % (0.0-3.0); Eosinophils Percent Auto 4.2 % (0.0-7.0); Hematocrit 38.2 % (33.0-51.0); Hemoglobin* 12.1 gm/dL (12.0-16.0); Immature Granulocytes Pct Auto 0.2 %; Lymphocytes Percent Auto 25.5 % (20-44); Mean Corpuscular HGB Conc 32 gm/dL (32-36); Mean Corpuscular Hemoglobin 28 pg (26-34); Mean Corpuscular Volume 88 fL (80-100); Monocytes Percent Auto 6.7 % (0.0-11.0); Neutrophils Percent Auto 62.9 % (42.0-72.0); Platelet Count* 200 K/uL (140-440); RDW Coefficient of Variation % 15.4 % (11.5-15.5); Red Blood Count 4.36 m/uL (4.00-5.20); White Blood Count* 4.04 K/uL (4.50-11.00)
[2023-02-24 07:38] LABS: Slide Review Reflex No
--- NOTE | 2023-02-24 07:41 | PC.NURSE ---
END OF SHIFT NOTE: PT PLEASANT AND COOPERATIVE. PT DENIES CP, SOB, N/V. AMBULATES WITH WALKER, GB, SBA/A1. VSS ON RA; AFEBRILE. BED ALARM ON AND CALL LIGHT WITHIN PT?S REACH. 4# WEIGHT INCREASE FROM YESTERDAY. HX OF HEART TRANSPLANT 5YR AGO. TELE READS A-PACED. DRY RED PATCHES NOTED TO PT'S RIGHT HAND/THUMB, RIGHT UPPER BACK/SHOULDER, UNDER BILATERAL BUTTOCKS. PT SMALL INCONTINENT OF URINE AND SMEARS OF BM. NIGHT UNEVENTFUL.
[2023-02-24 07:43] LABS: Albumin* 2.5 g/dL (3.3-5.0)
[2023-02-24] MEDS: POTASSIUM CHLORIDE 10 MEQ CAPSULE ER 20 MEQ PO ×3 (07:43→17:23)
[2023-02-24 07:44] LABS: Chloride* 109 mmol/L (96-114); Potassium* 4.8 mmol/L (3.6-5.1); Sodium* 136 mmol/L (135-149)
[2023-02-24 07:46] LABS: Carbon Dioxide* 26 mmol/L (20-32); Cholesterol* 257 mg/dL (90-199); Creatinine* 2.4 mg/dL (0.5-1.5); Est. Creatinine Clearance* 20.91; Estimated Glomerular Filt Rate 21 ml/min
[2023-02-24 07:47] LABS: Alanine Aminotransferase* 28 U/L (4-35); Alkaline Phosphatase* 96 U/L (40-150); Aspartate Amino Transferase* 34 U/L (12-35); Bilirubin Total* 0.4 mg/dL (0.1-1.5); Blood Urea Nitrogen* 33 mg/dL (7-30); Calcium* 8.2 mg/dL (8.4-10.6); Glucose* 221 mg/dL (60-115); Magnesium* 1.7 mg/dL (1.5-2.6); Total Protein* 4.9 g/dL (6.0-8.3); Triglycerides* 192 mg/dL (40-149)
[2023-02-24 07:48] LABS: HDL Cholesterol* 79 mg/dL (>=50); LDL Cholesterol Calculated 140 mg/dL (<100)
[2023-02-24] MEDS: SERTRALINE 100 MG TABLET PO (09:20)
[2023-02-24] MEDS: TORSEMIDE 20 MG TABLET 40 MG PO ×2 (09:20→11:22)
[2023-02-24] MEDS: APIXABAN 5 MG TABLET PO ×2 (09:21→20:49)
[2023-02-24] MEDS: mycophenolate mofetiL 250 MG CAPSULE PO ×2 (09:21→20:49)
[2023-02-24] MEDS: SODIUM CHLORIDE 0.9 % (FLUSH) 10 ML SYRINGE 5 ML IVF ×2 (09:21→21:00)
[2023-02-24] MEDS: ASPIRIN 81 MG TAB.CHEW PO (09:21)
[2023-02-24] MEDS: carvediloL 6.25 MG TABLET 12.5 MG PO ×2 (09:21→20:49)
[2023-02-24] MEDS: AMLODIPINE 5 MG TABLET PO ×2 (09:21→20:49)
--- NOTE | 2023-02-24 10:01 | NUTR.NU ---
RDN with MD consult related to diet education for Congestive Heart Failure. RDN visited with patient and (Ricardo, designated caregiver) whom reported they try to follow a low sodium diet at home. The will use salt-free seasonings most of the time (pepper, Mrs. Hutchinson) and limit convenience-type foods. If they do eat out, like [employer], they will order salt-free yakut fries. They will eat TV dinners sometimes, however Ricardo reports that he tries to pick the brand that has the lowest amount of sodium on the food label. RDN offered diet education, patient and designated caregiver agreed. Nutrition education provided on a low sodium diet related to congestive heart failure. Verbal and written information provided. Recommend limiting sodium to 2,000 mg per day. Discussed foods recommended and to avoid. Handouts provided from [facility] on heart failure nutrition therapy, sodium content of foods, heart healthy label reading tips, sodium-free flavoring tips and heart healthy cooking and shopping tips. Patient verbalized understanding. RDN's contact information was provided and patient was encouraged to call with questions.
--- NOTE | 2023-02-24 13:50 | P.IMPN_ITS ---
Progress Note: A&P Assessment and plan (1) Status post orthotopic heart transplant: Problem details: - ANW 04/02/2018. - TTE obtained 02/22/23 exhibits reassuring LV function - Reviewed findings with her transplant team on 02/23 (Jose and Dr. Guardado at [facility] no transfer needed at this time, routine outpatient follow-up Status: Acute (2) Acute exacerbation of CHF (congestive heart failure): Problem details: - presumably 2/2 HTN - continue diuresis, follow Is/Os Status: Acute (3) Acute on chronic kidney failure: Problem details: - baseline creatinine has been 1.2-1.8 in past 4 months, has been 2.2-2.4 since admission 02/22 - continue to follow Status: Acute (4) Cognitive impairment: Problem details: - needs medication assistance, MOCA 02/24/23 Status: Acute (5) Diabetes mellitus: Problem details: - type 1 per chart review - noted to have hypoglycemia and minimal p.o. intake with poor insulin compliance at home - 02/23: We will hold mealtime insulin, continue long-acting insulin assess what her needs are with sliding scale to help determine the best outpatient regimen for Wanda Status: Acute (6) Hypertension: Problem details: - improved on hospital day 2, we will be cautious to prevent hypotension given her neurologic event on hospital day 1 Status: Acute (7) TIA (transient ischemic attack): Problem details: - patient noted to have acute onset of facial droop and dysarthria on 02/23 am - CT head and CTA of head and neck revealed no acute abnormalities, symptoms spontaneously resolved approximately 1 hour after onset - reviewed findings with Stroke Neurology; no changes to regimen at this time as patient is anticoagulated on Eliquis - we will follow patient with frequent neuro checks, continue statin, ASA, Eliquis - unable to obtain MRI 2/2 pacemaker placement Status: Acute Plan - per above - continue Eliquis for ppx - will likely require SNF placement upon discharge - updated at bedside, questions answered Subjective Date Seen: 02/24/23 Interval history: No acute events overnight. Patient has remained neurologically stable. She remains weak, no other concerns for hospitalist team. Exam Narrative: Exam Narrative: GEN: Alert and sitting up comfortably in bed HEENT: Normal external ears, EOMIs bilaterally, no scleral icterus CV: RRR, No concerning murmurs, rubs, or gallops R: LCTA bilaterally without concerning wheezing, rales, or rhonchi Ext: 2-3+ edema BLE (wearing Fly hose) Skin: No concerning skin lesions or rashes on exposed skin Neuro: No facial droop, normal and symmetric occ therapy asst strength Psych: Appropriate Const: Vital Signs, click to edit/add: Vital Signs - 24 hr 02/23/23 15:00 02/23/23 15:00 02/23/23 15:00 Temperature 97.3 F L Pulse Rate 80 Pulse Rate [Pulse Oximeter] 80 80 Respiratory Rate 12 12 Blood Pressure [Le ft Arm] 147/90 H Pulse Oximetry 94 Oxygen Delivery Me thod Room Air Oxygen Flow Rate 02/23/23 18:59 02/24/23 01:30 02/24/23 01:30 Temperature 97.4 F L 97.9 F Pulse Rate Pulse Rate [Pulse Oximeter] 80 80 80 Respiratory Rate 16 18 18 Blood Pressure [Le ft Arm] 139/115 H 147/78 H Pulse Oximetry 98 92 Oxygen Delivery Me thod Room Air Room Air Oxygen Flow Rate 02/24/23 02:35 02/24/23 03:15 02/24/23 07:00 Temperature 98.3 F Pulse Rate 80 80 Pulse Rate [Pulse Oximeter] 80 Respiratory Rate 18 Blood Pressure [Le ft Arm] 140/77 H Pulse Oximetry 93 Oxygen Delivery Me thod Room Air Oxygen Flow Rate 02/24/23 07:00 02/24/23 07:00 02/24/23 11:15 Temperature 97.3 F L 97.4 F L Pulse Rate Pulse Rate [Pulse Oximeter] 80 80 81 Respiratory Rate 18 18 16 Blood Pressure [Le ft Arm] 151/94 H 149/85 H Pulse Oximetry 95 95 Oxygen Delivery Me thod Room Air Room Air Oxygen Flow Rate 0 Labs Labs: Laboratory Results - last 24 hr 02/24/23 06:27 WBC 4.04 L RBC 4.36 Hgb 12.1 Hct 38.2 MCV 88 MCH 28 MCHC 32 RDW Coeff of Wanda 15.4 Plt Count 200 Neut % (Auto) 62.9 Lymph % (Auto) 25.5 [place] % (Auto) 6.7 Eos % (Auto) 4.2 Baso % (Auto) 0.5 Neut # (Auto) 2.50 Lymph # (Auto) 1.00 [place] # (Auto) 0.30 Eos # (Auto) 0.20 Baso # (Auto) 0.00 Sodium 136 Potassium 4.8 Chloride 109 Carbon Dioxide 26 BUN 33 H Creatinine 2.4 H Estimated Creat Clear 20.91 Estimated GFR 21 Glucose 221 H Calcium 8.2 L Magnesium 1.7 Total Bilirubin 0.4 AST 34 ALT 28 Alkaline Phosphatase 96 Total Protein 4.9 L Albumin 2.5 L Triglycerides 192 H Cholesterol 257 H LDL Cholesterol, Calc 140 H HDL Cholesterol 79
[2023-02-24] MEDS: ATORVASTATIN 10 MG TABLET 40 MG PO (17:23)
--- NOTE | 2023-02-24 18:26 | PC.NURSE ---
End of shift note: Pt is alert and oriented to all questions. Denies pain. Vitals stable, on RA sating 95% at rest, denies SOB, but noted to have intermit more shallow breaths. BP slightly elevated, sys 140s-151 and diastolic range of 85-94, scheduled BP meds admin). Pt states she is tired and needing to rest today, up to chair in AM then back to bed. Tolerating diet, blood sugars elevated in 200s today, SSI admin and Levemir per order. Pt has had a couple looser incontinent stools today, MD updated, states to continue to monitor for now and if more, notify MD for possible new order for c.diff sample collection. Pt working w/ PT/OT today, saw camelid fiber sorter as well. Edema to BUE and BLE, additional one time dose of Torsemide 40mg admin, pt voiding typically 200-300ml at a time, missed the hat a couple times, and also had some urinary incontinence. IV continued saline locked, flushed and patent. Neuro checks continue, WDL, despite pt's known cognitive impairment (MOCA 16/30 per OT today). Call light within reach and able to use appropriately, at bedside this evening.
[2023-02-25] VITALS (7 sets, daily range): BP systolic 128–184; BP diastolic 71–106; PULSE 79–82; RESP 16–22; TEMP 36.5–37.2; O2SAT 91–94
[2023-02-25 00:57] LABS: Tacrolimus by HPLC-MS/MS 3.3 ng/mL
--- NOTE | 2023-02-25 04:51 | PC.NURSE ---
Pt rested well this night. Up A1 with walker. Continent this night. Reporting zero pain. Neuroes unremarkable.
[2023-02-25 07:28] LABS: Basophils Percent Auto 0.5 % (0.0-3.0); Eosinophils Percent Auto 4.1 % (0.0-7.0); Hematocrit 33.4 % (33.0-51.0); Hemoglobin* 10.6 gm/dL (12.0-16.0); Immature Granulocytes Pct Auto 0.5 %; Lymphocytes Percent Auto 26.3 % (20-44); Mean Corpuscular HGB Conc 32 gm/dL (32-36); Mean Corpuscular Hemoglobin 28 pg (26-34); Mean Corpuscular Volume 87 fL (80-100); Monocytes Percent Auto 8.7 % (0.0-11.0); Neutrophils Percent Auto 59.9 % (42.0-72.0); Platelet Count* 182 K/uL (140-440); RDW Coefficient of Variation % 14.9 % (11.5-15.5); Red Blood Count 3.82 m/uL (4.00-5.20); White Blood Count* 4.14 K/uL (4.50-11.00)
[2023-02-25 07:33] LABS: Slide Review Reflex No
[2023-02-25 07:42] LABS: Albumin* 2.3 g/dL (3.3-5.0); Chloride* 110 mmol/L (96-114); Sodium* 135 mmol/L (135-149)
[2023-02-25 07:43] LABS: Potassium* 5.6 mmol/L (3.6-5.1)
[2023-02-25] MEDS: POTASSIUM CHLORIDE 10 MEQ CAPSULE ER 20 MEQ PO (07:44)
[2023-02-25 07:45] LABS: Alanine Aminotransferase* 24 U/L (4-35); Alkaline Phosphatase* 83 U/L (40-150); Aspartate Amino Transferase* 30 U/L (12-35); Bilirubin Total* 0.4 mg/dL (0.1-1.5); Blood Urea Nitrogen* 39 mg/dL (7-30); Carbon Dioxide* 24 mmol/L (20-32); Creatinine* 2.6 mg/dL (0.5-1.5); Estimated Glomerular Filt Rate 19 ml/min; Glucose* 155 mg/dL (60-115); Total Protein* 4.6 g/dL (6.0-8.3)
[2023-02-25 07:46] LABS: Calcium* 7.8 mg/dL (8.4-10.6); Magnesium* 1.6 mg/dL (1.5-2.6)
[2023-02-25] MEDS: carvediloL 6.25 MG TABLET 25 MG PO ×2 (09:32→20:26)
[2023-02-25] MEDS: AMLODIPINE 5 MG TABLET PO ×2 (09:32→20:27)
[2023-02-25] MEDS: TORSEMIDE 20 MG TABLET PO (09:33)
[2023-02-25] MEDS: APIXABAN 5 MG TABLET PO ×2 (09:33→20:27)
[2023-02-25] MEDS: ASPIRIN 81 MG TAB.CHEW PO (09:33)
[2023-02-25] MEDS: SERTRALINE 100 MG TABLET PO (09:33)
[2023-02-25] MEDS: SODIUM CHLORIDE 0.9 % (FLUSH) 10 ML SYRINGE 5 ML IVF ×2 (09:34→20:29)
[2023-02-25] MEDS: mycophenolate mofetiL 250 MG CAPSULE PO ×2 (09:36→20:26)
--- NOTE | 2023-02-25 16:30 | P.IMPN_ITS ---
Progress Note: A&P Assessment and plan (1) Acute exacerbation of CHF (congestive heart failure): Problem details: - presumably 2/2 HTN - continue diuresis, follow Is/Os Status: Acute (2) Status post orthotopic heart transplant: Problem details: - ANW 04/02/2018. - TTE obtained 02/22/23 exhibits reassuring LV function - Reviewed findings with her transplant team on 02/23 (Jose and Dr. Guardado at [facility]); no transfer needed at this time, routine outpatient follow-up Status: Acute (3) Acute on chronic kidney failure: Problem details: - baseline creatinine has been 1.2-1.8 in past 4 months, has been 2.2-2.4 since admission 02/22 - continue to follow Status: Acute (4) TIA (transient ischemic attack): Problem details: - patient noted to have acute onset of facial droop and dysarthria on 02/23 am - CT head and CTA of head and neck revealed no acute abnormalities, symptoms spontaneously resolved approximately 1 hour after onset - reviewed findings with Stroke Neurology; no changes to regimen at this time as patient is anticoagulated on Eliquis - we will follow patient with frequent neuro checks, continue statin, ASA, Eliquis - unable to obtain MRI 2/2 pacemaker placement Status: Acute (5) Hypertension: Problem details: - improved on hospital day 2, we will be cautious to prevent hypotension given her neurologic event on hospital day 1 Status: Acute (6) Diabetes mellitus: Problem details: - type 1 per chart review - noted to have hypoglycemia and minimal p.o. intake with poor insulin compliance at home - 02/23: We will hold mealtime insulin, continue long-acting insulin assess what her needs are with sliding scale to help determine the best outpatient regimen for Wanda Status: Acute (7) Cognitive impairment: Problem details: - needs medication assistance, MOCA 02/24/23 Status: Acute Plan 1. Reviewed impression with patient 2. Double the dose of the carvedilol to 25 mg twice daily 3. Decrease dose of potassium chloride to 20 mEq once daily 4. Decrease dose torsemide to 20 mg every morning. 5. Recheck labs in the morning including BNP. 6. Continue to monitor weights daily. 7. Check orthostatic blood pressure and pulse tomorrow morning. Time Spent With Patient Total time spent: 40 minutes Subjective Time Seen by Provider: 09:30 Date Seen: 02/25/23 Interval history: Hospital day 4. 72-year-old woman status post heart transplant presents with heart failure. It is unclear how well she has been doing with her medication regimen. In-hospital efforts have been made to increase her diuresis and resume her usual medications. Blood pressures have been slowly improving. Weight has been re latively stable around 100 kg. Creatinine has been rising slowly, from 2.3 on admission to 2.6 today. BUN has been rising slowly, from 20/9 in admission to 39 today. Potassium has been rising from 3.6-5.6. Hemoglobin is dropping from 11.7 down to 10.6. Denies chest heaviness, pressure, tightness, or pain. Denies cough, dyspnea at rest, paroxysmal nocturnal dyspnea, orthopnea. Tolerating activities. Denies syncope or near-syncope. Denies orthostasis. Exam Narrative: Exam Narrative: Appears comfortable and in no acute distress. Alert, oriented to self, place, time, situation. Vision and hearing are grossly adequate. No obvious JVD or hepatojugular reflux in sitting upright position. Lungs clear to auscultation. Heart tones with regular rhythm. Abdomen benign. Edema pretibially bilaterally. Const: Vital Signs, click to edit/add: Vital Signs - 24 hr 02/24/23 19:28 02/24/23 23:26 02/24/23 23:27 Temperature 98.0 F 98.0 F Pulse Rate Pulse Rate [Pulse Oximeter] 80 78 78 Respiratory Rate 18 18 18 Blood Pressure [Le ft Arm] 176/93 H 177/103 H Pulse Oximetry 95 95 Oxygen Delivery Me thod Room Air Room Air Oxygen Flow Rate 0 0 02/24/23 23:27 02/25/23 02:28 02/25/23 07:00 Temperature 98.9 F 97.9 F Pulse Rate 78 Pulse Rate [Pulse Oximeter] 82 82 Respiratory Rate 18 22 Blood Pressure [Le ft Arm] 148/95 H 161/91 H Pulse Oximetry 93 91 Oxygen Delivery Me thod Room Air Room Air Oxygen Flow Rate 02/25/23 07:00 02/25/23 07:00 02/25/23 11:00 Temperature 97.8 F Pulse Rate 80 Pulse Rate [Pulse Oximeter] 82 82 Respiratory Rate 22 22 Blood Pressure [Le ft Arm] 184/106 H Pulse Oximetry 93 Oxygen Delivery Me thod Room Air Oxygen Flow Rate 02/25/23 15:00 02/25/23 15:00 Temperature 98.6 F Pulse Rate Pulse Rate [Pulse Oximeter] 79 79 Respiratory Rate 22 22 Blood Pressure [Le ft Arm] 145/85 H Pulse Oximetry 94 Oxygen Delivery Me thod Room Air Oxygen Flow Rate Documenting provider has reviewed patient's vital signs: yes Labs Labs: Laboratory Results - last 24 hr 02/23/23 02/25/23 06:50 07:15 WBC 4.14 L RBC 3.82 L Hgb 10.6 L Hct 33.4 MCV 87 MCH 28 MCHC 32 RDW Coeff of Wanda 14.9 Plt Count 182 Neut % (Auto) 59.9 Lymph % (Auto) 26.3 [place] % (Auto) 8.7 Eos % (Auto) 4.1 Baso % (Auto) 0.5 Neut # (Auto) 2.50 Lymph # (Auto) 1.10 [place] # (Auto) 0.40 Eos # (Auto) 0.20 Baso # (Auto) 0.00 Sodium 135 Potassium 5.6 H Chloride 110 Carbon Dioxide 24 BUN 39 H Creatinine 2.6 H Estimated Creat Clear 19.30 Estimated GFR 19 Glucose 155 H Calcium 7.8 L Magnesium 1.6 Total Bilirubin 0.4 AST 30 ALT 24 Alkaline Phosphatase 83 Total Protein 4.6 L Albumin 2.3 L Tacrolimus (LC/MS/MS) 3.3
[2023-02-25] MEDS: LOSARTAN POTASSIUM 50 MG TABLET 12.5 MG PO (17:11)
[2023-02-25] MEDS: ATORVASTATIN 10 MG TABLET 40 MG PO (18:01)
--- NOTE | 2023-02-25 18:27 | PC.NURSE ---
End of Shift: Patient pleasant and cooperative. Patient vitally stable, lungs clear, BS WNL, IV SL and intact. Patient 1 assist, walker, gb. Patient is continent and incontinent, patient is urinating and had 1 BMs. Patient tolerating regular diet. Patient blood sugars 161, 181, 198. Patient tele=paced. Patient with has a very large hemorrhoid or prolapsed anus.
[2023-02-26] VITALS (8 sets, daily range): BP systolic 139–166; BP diastolic 75–110; PULSE 79–95; RESP 18–24; TEMP 36.4–36.8; O2SAT 93–94
[2023-02-26 06:59] LABS: Hemoglobin* 11.6 gm/dL (12.0-16.0)
[2023-02-26 07:11] LABS: Albumin* 2.6 g/dL (3.3-5.0); Chloride* 111 mmol/L (96-114)
[2023-02-26 07:12] LABS: Potassium* 5.8 mmol/L (3.6-5.1); Sodium* 135 mmol/L (135-149)
[2023-02-26 07:14] LABS: Carbon Dioxide* 23 mmol/L (20-32); Creatinine* 2.8 mg/dL (0.5-1.5); Est. Creatinine Clearance* 17.92; Estimated Glomerular Filt Rate 18 ml/min
[2023-02-26 07:15] LABS: Blood Urea Nitrogen* 42 mg/dL (7-30); Calcium* 8.2 mg/dL (8.4-10.6); Glucose* 183 mg/dL (60-115); Phosphorus* 4.6 mg/dL (2.5-4.5)
[2023-02-26 07:25] LABS: NT Pro B Type NatriureticPept* 4790 pg/mL
[2023-02-26] MEDS: LOSARTAN POTASSIUM 50 MG TABLET 12.5 MG PO (09:36)
[2023-02-26] MEDS: ASPIRIN 81 MG TAB.CHEW PO (09:36)
[2023-02-26] MEDS: POTASSIUM CHLORIDE 10 MEQ CAPSULE ER 20 MEQ PO (09:37)
[2023-02-26] MEDS: APIXABAN 5 MG TABLET PO ×2 (09:38→20:35)
[2023-02-26] MEDS: carvediloL 6.25 MG TABLET 25 MG PO ×2 (09:38→20:35)
[2023-02-26] MEDS: AMLODIPINE 5 MG TABLET PO ×2 (09:38→20:35)
[2023-02-26] MEDS: SERTRALINE 100 MG TABLET PO (09:39)
[2023-02-26] MEDS: mycophenolate mofetiL 250 MG CAPSULE PO ×2 (09:39→20:35)
[2023-02-26] MEDS: TORSEMIDE 20 MG TABLET PO (09:42)
[2023-02-26] MEDS: SODIUM CHLORIDE 0.9 % (FLUSH) 10 ML SYRINGE 5 ML IVF ×2 (09:42→20:36)
[2023-02-26] MEDS: 0.9 % SODIUM CHLORIDE 250 ml 250 ML IV (13:58)
--- NOTE | 2023-02-26 15:36 | PM.IMPN1 ---
Progress Note: A&P Assessment and plan (1) Acute exacerbation of CHF (congestive heart failure): Problem details: - presumably 2/2 HTN Status: Acute Assessment and Plan: 1. With rising creatinine and BUN yesterday we slow down the amount diuretic we gave her. Despite that her creatinine and BUN continue to rise today. My thought is that patient is still intravascularly volume depleted from overzealous diuresis efforts. BNP relatively stable compared to admission value about 5000. Today's value is about 4800. (2) Status post orthotopic heart transplant: Problem details: - ANW 04/02/2018. - TTE obtained 02/22/23 exhibits reassuring LV function - Reviewed findings with her transplant team on 02/23 (Jose and Dr. Guardado at [facility]); no transfer needed at this time, routine outpatient follow-up Status: Acute Assessment and Plan: Will obtain another tacrolymus level tomorrow morning. Consider calling and speaking with the heart transplant team at [facility] tomorrow. (3) Acute on chronic kidney failure: Problem details: - baseline creatinine has been 1.2-1.8 in past 4 months, has been been rising to a value of 2.8 today. BUN up to 42 compared to 12/07 and admission. - continue to follow Status: Acute Assessment and Plan: 1. Will stop furosemide today. 2. 250 mL bolus of normal saline today. Monitor orthostatic blood pressures and pulses with this. (4) TIA (transient ischemic attack): Problem details: - patient noted to have acute onset of facial droop and dysarthria on 5 am - CT head and CTA of head and neck revealed no acute abnormalities, symptoms spontaneously resolved approximately 1 hour after onset - reviewed findings with Stroke Neurology; no changes to regimen at this time as patient is anticoagulated on Eliquis - we will follow patient with frequent neuro checks, continue statin, ASA, Eliquis - unable to obtain MRI 2/2 pacemaker placement Status: Acute (5) Hypertension: Problem details: - improved on hospital day 2, we will be cautious to prevent hypotension given her neurologic event on hospital day 1 Status: Acute Assessment and Plan: Tolerating carvedilol, amlodipine, losartan, furosemide. Due to the evolving acute kidney injury I will stop the furosemide altogether, administer a 250 mL IV fluid bolus of normal saline, continue to monitor. (6) Diabetes mellitus: Problem details: - type 1 per chart review - noted to have hypoglycemia and minimal p.o. intake with poor insulin compliance at home - 02/23: We will hold mealtime insulin, continue long-acting insulin assess what her needs are with sliding scale to help determine the best outpatient regimen for Wanda Status: Acute (7) Cognitive impairment: Problem details: - needs medication assistance, MOCA 1630 02/24/23 Status: Acute Assessment and Plan: I visit with patient and her son today. Plan 1. Plan as specified above 2. If we are able to obtain another tacrolimus level tomorrow will consider calling [facility] to discuss patient's evolving condition. Time Spent With Patient Total time spent: 40 minutes Subjective Time Seen by Provider: 10:00 Date Seen: 02/26/23 Interval history: Hospital day 5. 72-year-old woman status post heart transplant presents with heart failure. It is unclear how well she has been doing with her medication regimen. In-hospital efforts have been made to increase her diuresis and resume her usual medications. Blood pressures have been slowly improving. Weight has been relatively stable around 100 kg. Creatinine has been rising slowly, from 2.3 on admission to 2.8 today. BUN has been rising slowly, from 29 in admission to 42 today. Potassium has been rising from 3.6-5.8. Hemoglobin remains stable. Denies chest heaviness, pressure, tightness, or pain. Denies cough, dyspnea at rest, paroxysmal nocturnal dyspnea, orthopnea. Tolerating increased ambulation in room and in halls. Denies syncope or near-syncope. Denies orthostasis. Exam Narrative: Exam Narrative: Appears comfortable and in no acute distress. Alert, oriented to self, place, time, situation. Friendly and cooperative. Mood and affect are congruent. Lungs are clear to auscultation with slightly decreased breath sounds in the right base compared to the left. Heart tones with regular rhythm, normal S1-S2. Abdomen obese with active bowel sounds, soft, nontender. Extremities with trace pretibial edema. Independent transfer, station, gait. Const: Vital Signs, click to edit/add: Vital Signs - 24 hr 02/25/23 19:00 02/25/23 22:31 02/25/23 22:49 Temperature 98.6 F 97.7 F Pulse Rate 80 Pulse Rate [Pulse Oximeter] 80 79 Pulse Rate [orthos tatic lying Left P ulse Oximeter] Pulse Rate [orthos tatic sitting Left Pulse Oximeter] Pulse Rate [orthos tatic standing Lef t Pulse Oximeter] Respiratory Rate 16 22 Blood Pressure [Le ft Arm] 145/71 H 128/76 Blood Pressure [or thostatic lying Le ft Arm] Blood Pressure [or thostatic sitting Left Arm] Blood Pressure [or thostatic standing Left Arm] Pulse Oximetry 94 93 Oxygen Delivery Me thod Room Air Room Air Oxygen Flow Rate 02/26/23 02:33 02/26/23 06:00 02/26/23 07:00 Temperature 97.5 F L 97.6 F Pulse Rate Pulse Rate [Pulse Oximeter] 80 81 Pulse Rate [orthos tatic lying Left P ulse Oximeter] 93 Pulse Rate [orthos tatic sitting Left Pulse Oximeter] 95 Pulse Rate [orthos tatic standing Lef t Pulse Oximeter] 95 Respiratory Rate 20 18 Blood Pressure [Le ft Arm] 139/93 H 161/86 H Blood Pressure [or thostatic lying Le ft Arm] 150/84 H Blood Pressure [or thostatic sitting Left Arm] 165/92 H Blood Pressure [or thostatic standing Left Arm] 150/110 H Pulse Oximetry 94 93 Oxygen Delivery Me thod Room Air Room Air Oxygen Flow Rate 02/26/23 07:00 02/26/23 07:00 02/26/23 11:00 Temperature 97.6 F Pulse Rate 80 Pulse Rate [Pulse Oximeter] 81 83 Pulse Rate [orthos tatic lying Left P ulse Oximeter] Pulse Rate [orthos tatic sitting Left Pulse Oximeter] Pulse Rate [orthos tatic standing Lef t Pulse Oximeter] Respiratory Rate 24 Blood Pressure [Le ft Arm] 153/87 H Blood Pressure [or thostatic lying Le ft Arm] Blood Pressure [or thostatic sitting Left Arm] Blood Pressure [or thostatic standing Left Arm] Pulse Oximetry 93 Oxygen Delivery Me thod Room Air Oxygen Flow Rate 0 02/26/23 13:46 02/26/23 15:00 02/26/23 15:00 Temperature 97.7 F Pulse Rate Pulse Rate [Pulse Oximeter] 81 81 Pulse Rate [orthos tatic lying Left P ulse Oximeter] 80 Pulse Rate [orthos tatic sitting Left Pulse Oximeter] 81 Pulse Rate [orthos tatic standing Lef t Pulse Oximeter] 79 Respiratory Rate 18 18 Blood Pressure [Le ft Arm] 154/84 H Blood Pressure [or thostatic lying Le ft Arm] 166/92 H Blood Pressure [or thostatic sitting Left Arm] 154/89 H Blood Pressure [or thostatic standing Left Arm] 149/81 H Pulse Oximetry 93 Oxygen Delivery Me thod Room Air Oxygen Flow Rate Documenting provider has reviewed patient's vital signs: yes Labs Labs: Laboratory Results - last 24 hr 02/26/23 06:30 Hgb 11.6 L Sodium 135 Potassium 5.8 H Chloride 111 Carbon Dioxide 23 BUN 42 H Creatinine 2.8 H Estimated Creat Clear 17.92 Estimated GFR 18 Glucose 183 H Calcium 8.2 L Phosphorus 4.6 H NT-Pro-B Natriuret Pep 4790 Albumin 2.6 L
[2023-02-26] MEDS: ATORVASTATIN 10 MG TABLET 40 MG PO (17:43)
--- NOTE | 2023-02-26 18:06 | PC.NURSE ---
End of Shift: Patient pleasant and cooperative. Patient hypertensive but vitally stable, lungs clear, BS WNL, IV SL and intact. Patient 1 assist/walker. Patient denies pain. Patient tolerating regular diet. Blood sugars 177, 256, 302. Patient urinating and has had 4 soft/loose stools all incontinence and in toilet. Tele=paced.
[2023-02-27 03:00] VITALS: BP 165/90; PULSE 80; RESP 20; TEMP 36.6; O2SAT 92
--- NOTE | 2023-02-27 05:31 | PC.NURSE ---
[id number] Pt slept well during shift, up to br with walker/SBA, tolerated activity well. denies SOB, difficulty breathing, chest pain, headache or any concerns.
[2023-02-27 07:24] VITALS: PULSE 80
[2023-02-27 07:39] LABS: Albumin* 2.3 g/dL (3.3-5.0); Chloride* 110 mmol/L (96-114); Sodium* 135 mmol/L (135-149)
[2023-02-27 07:42] LABS: Carbon Dioxide* 24 mmol/L (20-32); Creatinine* 2.9 mg/dL (0.5-1.5); Estimated Glomerular Filt Rate 17 ml/min
[2023-02-27 07:43] LABS: Blood Urea Nitrogen* 45 mg/dL (7-30); Glucose* 144 mg/dL (60-115); Phosphorus* 4.7 mg/dL (2.5-4.5)
[2023-02-27 07:53] LABS: NT Pro B Type NatriureticPept* 4200 pg/mL
[2023-02-27 08:00] VITALS: BP 149/86; PULSE 81; RESP 20; TEMP 36.9; O2SAT 95
[2023-02-27] MEDS: ASPIRIN 81 MG TAB.CHEW PO (08:18)
[2023-02-27] MEDS: LOSARTAN POTASSIUM 50 MG TABLET 12.5 MG PO (08:19)
[2023-02-27] MEDS: SERTRALINE 100 MG TABLET PO (08:19)
[2023-02-27] MEDS: APIXABAN 5 MG TABLET PO (08:19)
[2023-02-27] MEDS: carvediloL 6.25 MG TABLET 25 MG PO (08:20)
[2023-02-27] MEDS: AMLODIPINE 5 MG TABLET PO (08:20)
[2023-02-27] MEDS: mycophenolate mofetiL 250 MG CAPSULE PO (08:20)
[2023-02-27] MEDS: SODIUM CHLORIDE 0.9 % (FLUSH) 10 ML SYRINGE 5 ML IVF (08:26)
--- NOTE | 2023-02-27 12:16 | P.DS_ITS ---
DS: Providers Provider Time Seen by Provider: 08:30 Date Seen: 02/27/23 Date of admission: 02/24/23 11:12 Primary care physician: Huseyin Vera MD Admitting Clinician: Precious Felton MD Consults: 02/22/23 14:58 Consult to Physical Therapy [CONS] Routine Comment: Reason(s) for PT Consult:: Evaluate and Treat Any Restrictions?:: No Restrictions 02/22/23 15:00 Consult to Occupational Therapy [CONS] Routine Comment: Reason(s) for OT Consult:: Evaluate and Treat Any Restrictions?:: No Restrictions Comment: MOCA 02/23/23 10:42 Consult to Nutrition [CONS] Routine Comment: Reason for consult:: Nutritional Consult Comment: CHF Attending Physician on discharge: Cleveland Medina MD Date of Discharge: 02/27/23 DS: Diagnosis Discharge Diagnosis (1) Acute exacerbation of CHF (congestive heart failure): Status: Acute Problem details: - presumably 2/2 HTN - patient lacks insight into understanding the importance of managing her underlying medical conditions including her hypertension and heart failure (2) Status post orthotopic heart transplant: Status: Acute Problem details: - ANW 04/02/2018. - TTE obtained 02/22/23 exhibits reassuring LV function - Reviewed findings with her transplant team on 02/23 (Jose and Dr. Guardado at [facility]) - it was uncertain on presentation whether not she was taking her immunosuppressive therapy appropriately when she 1st presented to the hospital. After conferring with her transplant team, we resumed her recommended regimen. (3) TIA (transient ischemic attack): Status: Acute Problem details: - patient noted to have acute onset of facial droop and dysarthria on 02/23 am - CT head and CTA of head and neck revealed no acute abnormalities, symptoms spontaneously resolved approximately 1 hour after onset - reviewed findings with Stroke Neurology; no changes to regimen at this time as patient is anticoagulated on Eliquis - continue statin, ASA, Eliquis - unable to obtain MRI 2/2 pacemaker placement, thus obtained CTA (4) CVA (cerebral vascular accident): Status: Acute Problem details: - CT head 02/23/2023 demonstrates old stroke left frontal lobe (5) Acute on chronic kidney failure: Status: Acute Problem details: - baseline creatinine has been 1.2-1.8 in past 4 months, has been rising to a value of 2.9, with BUN up to 45 compared to 29 and admission, and K+ up to 6. - rapidly decreasing urine output, roughly 250 mL output 2 days ago, now 0 urine output for the last day. - most likely related to the IV contrast administered to the patient when she had her CT angiogram, in conjunction with baseline chronic kidney disease and heart failure (6) Cognitive impairment: Status: Acute Problem details: - needs medication assistance, MOCA 02/24/23 - my concern is that patient lacks insight and judgment in terms of making safe decisions for herself and presumably has not been taking her medications as prescribed. (7) Diabetes mellitus: Status: Acute Problem details: - type 1 per chart review - noted to have hypoglycemia and minimal p.o. intake with poor insulin compliance at home - 02/23: We will hold mealtime insulin, continue long-acting insulin assess what her needs are with sliding scale to help determine the best outpatient regimen for Wanda (8) Hypertension: Status: Acute Problem details: - improved on hospital day 2, we will be cautious to prevent hypotension given her neurologic event on hospital day 1 DS: Summary Hospital Course Hospital Course: 72-year-old woman presented with 2 week of insidious progression of lower extremity edema and dyspnea. On assessment was found to be in heart failure. Initiated treatment with IV furosemide. In time switch to oral torsemide. Admission weight 99.4 kg. On day 2. Weight was down to 97.6 kg. Weight increased thereafter. On date of discharge weight is up to 102.3 kg. Patient developed acute kidney injury on day 2., after her IV contrast administration for CT angiogram of the head. Efforts to increase diuresis were made. Efforts to stop the diuretics and administer IV fluids were made. Despite all this her acute renal failure progress. On date of transfer from our hospital to [place], [place], I spoke with Dr. Wallace, hospitalist, who accepted the patient in transfer and will make arrangements for the patient to be further assessed by Nephrology and Cardiology. Patient and agreeable. Status at Discharge Functional status at discharge: independent ambulation Overall status at discharge: patient is not back to baseline Time Spent with Patient Time attestation: Total time spent providing and/or coordinating discharge services: Time spent: Greater than 30 minutes Exam Narrative: Exam Narrative: Weight today is 102.3 kg. Yesterday's weight was 100.8 kg. Vision and hearing are grossly normal. Alert and oriented to self, place, time, and in part to situation. Friendly, cooperative. Mood and affect are congruent. Lungs clear to auscultation. Heart tones with regular rhythm. Abdomen obese with active bowel sounds, soft. Bilateral lower extremity edema. Skin is intact. Const: Vital Signs, click to edit/add: Vital Signs - 24 hr 02/26/23 13:46 02/26/23 15:00 02/26/23 15:00 Temperature 97.7 F Pulse Rate Pulse Rate [Pulse Oximeter] 81 81 Pulse Rate [orthos tatic lying Left P ulse Oximeter] 80 Pulse Rate [orthos tatic sitting Left Pulse Oximeter] 81 Pulse Rate [orthos tatic standing Lef t Pulse Oximeter] 79 Respiratory Rate 18 18 Blood Pressure [Le ft Arm] 154/84 H Blood Pressure [or thostatic lying Le ft Arm] 166/92 H Blood Pressure [or thostatic sitting Left Arm] 154/89 H Blood Pressure [or thostatic standing Left Arm] 149/81 H Pulse Oximetry 93 Oxygen Delivery Me thod Room Air Oxygen Flow Rate 02/26/23 15:00 02/26/23 19:00 02/26/23 23:00 Temperature 98.2 F 98.1 F Pulse Rate 80 Pulse Rate [Pulse Oximeter] 80 80 Pulse Rate [orthos tatic lying Left P ulse Oximeter] Pulse Rate [orthos tatic sitting Left Pulse Oximeter] Pulse Rate [orthos tatic standing Lef t Pulse Oximeter] Respiratory Rate 18 18 Blood Pressure [Le ft Arm] 153/85 H 145/75 H Blood Pressure [or thostatic lying Le ft Arm] Blood Pressure [or thostatic sitting Left Arm] Blood Pressure [or thostatic standing Left Arm] Pulse Oximetry 94 93 Oxygen Delivery Me thod Room Air Room Air Oxygen Flow Rate 0 02/26/23 23:00 02/27/23 03:00 02/27/23 07:24 Temperature 97.9 F Pulse Rate 80 80 Pulse Rate [Pulse Oximeter] 80 Pulse Rate [orthos tatic lying Left P ulse Oximeter] Pulse Rate [orthos tatic sitting Left Pulse Oximeter] Pulse Rate [orthos tatic standing Lef t Pulse Oximeter] Respiratory Rate 20 Blood Pressure [Le ft Arm] 165/90 H Blood Pressure [or thostatic lying Le ft Arm] Blood Pressure [or thostatic sitting Left Arm] Blood Pressure [or thostatic standing Left Arm] Pulse Oximetry 92 Oxygen Delivery Me thod Room Air Oxygen Flow Rate 0 02/27/23 08:00 02/27/23 08:00 Temperature 98.4 F Pulse Rate Pulse Rate [Pulse Oximeter] 81 81 Pulse Rate [orthos tatic lying Left P ulse Oximeter] Pulse Rate [orthos tatic sitting Left Pulse Oximeter] Pulse Rate [orthos tatic standing Lef t Pulse Oximeter] Respiratory Rate 20 20 Blood Pressure [Le ft Arm] 149/86 H Blood Pressure [or thostatic lying Le ft Arm] Blood Pressure [or thostatic sitting Left Arm] Blood Pressure [or thostatic standing Left Arm] Pulse Oximetry 95 Oxygen Delivery Me thod Room Air Oxygen Flow Rate 0 Documenting provider has reviewed patient's vital signs: yes DS: Data Data Completed and Pending Labs on day of discharge: Labs from last 24 hours 02/27/23 06:35 Sodium 135 Potassium 6.0 H Chloride 110 Carbon Dioxide 24 BUN 45 H Creatinine 2.9 H Estimated Creat Clear 17.30 Estimated GFR 17 Glucose 144 H Calcium 8.0 L Phosphorus 4.7 H NT-Pro-B Natriuret Pep 4200 Albumin 2.3 L Tacrolimus (LC/MS/MS) Pending Imaging CT scan - head: Attestation: I have reviewed the pertinent imaging results. Radiologist's impression: IMPRESSION: Focal low-density area in the deep white matter of the left frontal lobe near the munguia-white junction probably an ischemic focus, age-indeterminate. No hemorrhage. No abnormal extra-axial fluid collection. No additional focal findings. Head and neck CT ANGIOGRAM: IMPRESSION: Unremarkable head CTA. No large vessel occlusion. Discharge Plan Discharge Disposition: [facility] Discharge Location: [facility] Date of Admission: 02/24/23 11:12 Attending Provider on Discharge: Cleveland Medina Primary Care Provider: Huseyin Vera Condition: Critical Discharge Comments: Presented with 2 wk h/o weight gain, slow evolving dyspnea, and found to have acute exacerbation of heart failure. Initiated her usual meds for her cardiac transplant, started with IV furosemide then switched to oral torsamide. 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 CT head demonstrated old CVA. CT head/neck angiogram demonstrated intact large vessels without any stenosis. Subsequently she developed ANIL, oliguria, rising Cr, BUN, K+, and weight - wt 100 Kg on admission, down to 97.4 Kg with diuresis, but rising since despite diuresis efforts and on discharge wt 102.3 kg. No urine output over the past 24 hours. Likely ANIL due to IV contrast. Discussed with Dr. Wallace, [facility], who accepts patient in transfer for additional more intense services and interven tions not available here in our [facility]. Patient agreeable to stated plans and recommendations. Transferred via land ambulance. Oxygen: No Urinary Catheter: No Drips/Lines: None. Services not available here: Nephrology, cardiology specialty services.
--- NOTE | 2023-02-27 12:37 | PC.NURSE ---
VSS AND AFEBRILE. PATIENT DENIED PAIN. TOLERATING REGULAR DIET WITH NO C/O N/V. PATIENT CONTINUES TO HAVE CONTINENT/INC LOOSE STOOLS. REPORT GIVEN TO RN AT [facility] AND PATIENT TRANSFERRED VIA [facility].
[2023-03-01 02:35] LABS: Tacrolimus by HPLC-MS/MS 9.5 ng/mL
== END 2023-02-27 11:16 | disposition short-term general hospital (02) | DRG 291 ==
LOC: ED 14:01 → MEDSURG 14:49
PROVIDERS: Family Medicine; Internal Medicine; Admitting Provider Family Medicine; Emergency Provider Emergency Medicine Emergency Medical Services; PCP Family Medicine; Visit Provider Family Medicine
DX: I13.0 Hypertensive heart and chronic kidney disease with heart failure and stage 1 through stage 4 chronic kidney disease, or unspecified chronic kidney disease (principal); I50.33 Acute on chronic diastolic (congestive) heart failure; I63.9 Cerebral infarction, unspecified; Z94.1 Heart transplant status; I44.2 Atrioventricular block, complete; N17.9 Acute kidney failure, unspecified; R47.1 Dysarthria and anarthria; R29.810 Facial weakness; I43 Cardiomyopathy in diseases classified elsewhere; Z95.0 Presence of cardiac pacemaker; Z79.4 Long term (current) use of insulin; G31.84 Mild cognitive impairment of uncertain or unknown etiology; Z79.01 Long term (current) use of anticoagulants; N18.9 Chronic kidney disease, unspecified; E11.22 Type 2 diabetes mellitus with diabetic chronic kidney disease; E11.319 Type 2 diabetes mellitus with unspecified diabetic retinopathy without macular edema; E66.9 Obesity, unspecified; Z68.35 Body mass index [BMI] 35.0-35.9, adult
CPT/HCPCS: 36415; 70450; 70496; 70498; 71045; 80048; 80053; 80061; 80069; 80076; 80197; 82962; 83036; 83735; 83880; 84443; 84484; 85018; 85025; 86140; 93005; 93306; 94761; 97110; 97116; 97162; 97166; 97530; 97535; 99284; 99285; G0378; A9270; J1940; J7050; J7120; Q9967

== ENCOUNTER 2023-02-27 10:58 | Outpatient (CLI) | payer MEDICARE, BC, SELFPAY | END 2023-02-27 10:59 | disposition home or self-care (01) | LOC: AMB 03-02 10:07 | PROVIDERS: PCP Family Medicine; Visit Provider Family Medicine | DX: R53.1 Weakness (principal) | CPT/HCPCS: A0425; A0426 ==